=== PATIENT | male | born 1940 | race Caucasian/White ===

== ENCOUNTER 2020-12-25 10:20 | Outpatient (CLI) | payer MEDICARE, OTHER ==
[~2020-12-25 10:20] MED LIST: LEVO100T5 PO; LISI-170 PO; METO25TA35 PO; RIVA20TA PO; TRAZ-175 PO
[2020-12-25 11:02] LABS: BASOPHILS % (AUTO) 1 % (0-1); EOSINOPHILS % (AUTO) 1 % (1-7); LYMPHOCYTES % (AUTO) 23 % (22-44); MEAN CORPUSCULAR HEMOGLOBIN 33.8 pg (27.5-34.5); MEAN CORPUSCULAR HGB CONC 33.9 g/dL (33.2-36.2); MONOCYTES % (AUTO) 9 % (2-9); NEUTROPHILS % (AUTO) 67 % (42-75); PLATELET COUNT 324 x10^3/uL (130-400); RED BLOOD COUNT 4.66 x10^6/uL (4.38-5.82); RED CELL DISTRIBUTION WIDTH 12.8 % (9.4-14.8)
[2020-12-25 11:33] LABS: FOLATE LEVEL 8.3 ng/mL (3.1-17.5)
== END 2020-12-25 23:59 | disposition home or self-care (01) ==
LOC: LAB 10:20
PROVIDERS: ATTEND Nurse Practitioner Family
DX: D75.89 Other specified diseases of blood and blood-forming organs (principal); H93.19 Tinnitus, unspecified ear; R27.0 Ataxia, unspecified; E03.9 Hypothyroidism, unspecified; R41.3 Other amnesia; W19.XXXA Unspecified fall, initial encounter
CPT/HCPCS: 36415; 82607; 82746; 84402; 84403; 84443; 85025